=== PATIENT | male | born 1965 | race Native Hawaiian/Other Pacific Islander ===

== ENCOUNTER 2017-08-08 10:31 | Observation (INO) | payer BC ==
[~2017-08-08] VITALS: Ht 182.9 cm; Wt 153.5 kg
[~2017-08-08 10:31] MED LIST: B-125000 MC2 PO; CARV12.5 PO; FISH OIL1 C10 PO; FURO40TA93 PO; KLOR-CON M2020 MEQ PO; PROAIR HFA IN; VITAMIN D50000 UNT PO; ZINC220C4 PO
[2017-08-08 11:26] VITALS: BP 157/90; TEMP 98.5; Ht 182.9 cm; Wt 153.5 kg
[2017-08-08 12:02] VITALS: BP 157/90; TEMP 98.5
[2017-08-08 12:28] LABS: PLATELET COUNT 235 K/uL (142-355)
[2017-08-08 12:42] LABS: POTASSIUM 3.8 mmol/L (3.6-5.2)
[2017-08-08] MEDS ORDERED: GRALISE300 MG PO (15:10)
[2017-08-08] MEDS ORDERED: POTASSIUM25 MEQ PO (15:11)
[2017-08-08 16:00] VITALS: BP 132/88; TEMP 98
--- NOTE | 2017-08-08 18:30 | NUR ---
PT ASKED MULTIPLE TIMES THROUGHOUT THE DAY IF HE NEEDED ANYTHING FOR PAIN OR NAUSEA. PT DENIES ANYTHING FOR PAIN OR NAUSEA. NAD NOTED. PT WAITING TO GET CT AT THIS TIME.
[2017-08-08 20:00] VITALS: BP 150/94; TEMP 97.9
[2017-08-09] VITALS: BP 131/75; TEMP 98.3
[2017-08-09 04:00] VITALS: BP 132/80; TEMP 98.2
[2017-08-09 06:39] LABS: PLATELET COUNT 195 K/uL (142-355)
[2017-08-09 08:01] VITALS: BP 155/85; TEMP 98.4
--- NOTE | 2017-08-09 09:07 | NUR ---
899 DR MCCRARY NOTIFIED PT DEMANDING TO BE DISCHARGED HOME. AWARE. 904 CALLED TO ROOM PER PT PT HAD DC'D HIS OWN IV AND IVF'S. PT DEMANDING TO LEAVE. ATTEMPTED TO EXPLAIN TO PT WAS NOTITIFED AND WOULD BE MAKING ROUNDS SOON. PT REFUSED TO WAIT. PT REQUESTING TO SIGN AMA AT THIS TIME. PT GIVEN AND EXP[LAINED AMA FORM AND VERBALIZED UNDERSTANDING. PT LEFT AMBUALTORY
== END 2017-08-09 09:07 | disposition left against medical advice (07) ==
LOC: MED/SURG 10:31
PROVIDERS: Family Medicine; ADMIT Nurse Practitioner
DX: R10.84 Generalized abdominal pain (principal); I48.91 Unspecified atrial fibrillation
CPT/HCPCS: 80053; 82948; 85027; 93005; 96365; 96366; 96367; 96375; 99220; G0378; G0379; J0744; J2405; J3490; Q9963

== ENCOUNTER 2017-08-24 09:40 | Outpatient (CLI) | payer BC ==
[~2017-08-24 09:40] MED LIST changes: +GRALISE300 MG PO; +POTASSIUM25 MEQ PO
[2017-08-24] MEDS ORDERED: METF100038 PO (09:55)
== END 2017-08-24 09:43 | disposition short-term general hospital (02) ==
LOC: AMB 09:40
DX: R06.09 Other forms of dyspnea (principal); R53.1 Weakness; M79.605 Pain in left leg
CPT/HCPCS: A0425; A0429

== ENCOUNTER 2017-08-24 09:43 | Inpatient (IN) | payer BC ==
[~2017-08-24] VITALS: Ht 182.9 cm; Wt 146.7 kg
[2017-08-24 09:45] VITALS: BP 160/95; TEMP 98.4
[2017-08-24] MEDS ORDERED: METF100038 PO (09:55)
[2017-08-24 10:04] LABS: PLATELET COUNT 320 K/uL (142-355)
[2017-08-24 14:36] VITALS: BP 150/80; TEMP 98.1; Ht 182.9 cm; Wt 146.7 kg
[2017-08-24 16:00] VITALS: BP 150/80; TEMP 98.1
[2017-08-24 20:00] VITALS: BP 120/73; TEMP 98
[2017-08-25] VITALS: BP 119/81; TEMP 97.5
[2017-08-25 04:00] VITALS: BP 154/83; TEMP 98.1
[2017-08-25 06:12] LABS: PLATELET COUNT 259 K/uL (142-355)
[2017-08-25 08:00] VITALS: BP 154/85; TEMP 99.3
[2017-08-25 12:00] VITALS: BP 142/76; TEMP 99.8
[2017-08-25 16:00] VITALS: BP 144/90; TEMP 98.2
[2017-08-25 20:00] VITALS: BP 126/80; TEMP 98.6
[2017-08-26] VITALS: BP 126/78; TEMP 98.1
[2017-08-26 04:00] VITALS: BP 137/78; TEMP 98.6
[2017-08-26 05:18] LABS: PLATELET COUNT 235 K/uL (142-355)
[2017-08-26 05:54] LABS: POTASSIUM 3.7 mmol/L (3.6-5.2)
[2017-08-26 08:00] VITALS: BP 125/81; TEMP 98.1
[2017-08-26 12:00] VITALS: BP 119/84; TEMP 98.4
[2017-08-26 16:00] VITALS: BP 114/87; TEMP 98.4
[2017-08-26 20:00] VITALS: BP 116/66; TEMP 99
[2017-08-27] VITALS (7 sets, daily range): BP systolic 108–155; BP diastolic 64–84; TEMP 97.3–98.1
[2017-08-27 06:11] LABS: PLATELET COUNT 239 K/uL (142-355)
[2017-08-27 06:37] LABS: POTASSIUM 3.9 mmol/L (3.6-5.2)
[2017-08-28 03:30] LABS: PLATELET COUNT 236 K/uL (142-355)
[2017-08-28 03:47] VITALS: BP 126/70; TEMP 97.4
[2017-08-28 03:50] LABS: POTASSIUM 4.1 mmol/L (3.6-5.2)
[2017-08-28 07:59] VITALS: BP 130/65; TEMP 98.1
[2017-08-28 11:39] VITALS: BP 137/86; TEMP 98.1
[2017-08-28 16:00] VITALS: BP 137/75; TEMP 98
[2017-08-28 19:52] VITALS: BP 107/56; TEMP 97.7
[2017-08-29] VITALS: BP 118/71; TEMP 98.1
[2017-08-29 03:52] VITALS: BP 143/80; TEMP 97.4
[2017-08-29 05:45] LABS: PLATELET COUNT 233 K/uL (142-355)
[2017-08-29 06:07] LABS: POTASSIUM 3.1 mmol/L (3.6-5.2)
[2017-08-29 08:00] VITALS: BP 141/81; TEMP 98
[2017-08-29] MEDS ORDERED: MEDROL DOSEPAK4 MG PO (11:59)
[2017-08-29] MEDS ORDERED: KETO10TA34 PO (11:59)
[2017-08-29 12:00] VITALS: BP 133/78; TEMP 97.8
== END 2017-08-29 13:55 | disposition home or self-care (01) | DRG 565 ==
LOC: ED 09:43 → MED/SURG 12:00
PROVIDERS: ADMIT Family Medicine
DX: M25.462 Effusion, left knee (principal); E87.1 Hypo-osmolality and hyponatremia; R06.09 Other forms of dyspnea; I48.91 Unspecified atrial fibrillation; E66.01 Morbid (severe) obesity due to excess calories; E11.9 Type 2 diabetes mellitus without complications; K57.90 Diverticulosis of intestine, part unspecified, without perforation or abscess without bleeding
CPT/HCPCS: 36415; 36600; 80053; 81002; 82533; 82550; 82805; 82947; 82948; 83735; 83880; 84100; 84484; 84550; 85027; 85379; 85651; 86140; 86255; 86431; 93005; 93306; 94760; 96372; 96374; 96375; 99284; J1100; J1650; J1815; J1885; J1940; J2270; J2405; Q9963

== ENCOUNTER 2017-09-09 14:35 | Emergency (ER) | payer BC ==
[~2017-09-09] VITALS: Ht 182.9 cm; Wt 138.3 kg
[~2017-09-09 14:35] MED LIST changes: +KETO10TA34 PO; +MEDROL DOSEPAK4 MG PO; +METF100038 PO
[2017-09-09 15:27] LABS: PLATELET COUNT 223 K/uL (142-355)
[2017-09-09 15:35] LABS: POTASSIUM 4.6 mmol/L (3.6-5.2)
[2017-09-09 15:47] LABS: PARTIAL THROMBOPLASTIN TIME 24.6 SECONDS (24.5-33.6)
[2017-09-09 17:35] VITALS: BP 130/82; TEMP 97.9
== END 2017-09-09 17:35 | disposition home or self-care (01) ==
LOC: ED 14:35
DX: E11.65 Type 2 diabetes mellitus with hyperglycemia (principal)
CPT/HCPCS: 36415; 80053; 83036; 85027; 85610; 85651; 85730; 96372; 99284; J1815

== ENCOUNTER 2018-04-29 19:47 | Emergency (ER) | payer BC ==
[~2018-04-29] VITALS: Ht 182.9 cm; Wt 142.9 kg
[2018-04-29 20:26] LABS: PLATELET COUNT 226 K/uL (142-355)
[2018-04-29 20:52] LABS: POTASSIUM 3.9 mmol/L (3.6-5.2); SODIUM 140 mmol/L (136-145)
[2018-04-29 22:10] VITALS: BP 132/97; TEMP 98.4
== END 2018-04-29 22:10 | disposition home or self-care (01) ==
LOC: ED 19:47
PROVIDERS: Family Medicine
DX: R07.89 Other chest pain (principal); R06.02 Shortness of breath; I50.9 Heart failure, unspecified; R00.0 Tachycardia, unspecified; I44.4 Left anterior fascicular block
CPT/HCPCS: 36415; 80053; 82550; 82553; 83880; 84484; 85027; 93005; 99284

== ENCOUNTER 2018-11-08 23:30 | Emergency (ER) | payer BC ==
[~2018-11-08] VITALS: Ht 182.9 cm; Wt 142.9 kg
[2018-11-09 01:11] LABS: PLATELET COUNT 281 K/uL (142-355)
[2018-11-09 01:20] LABS: POTASSIUM 4.3 mmol/L (3.6-5.2)
[2018-11-09 04:35] VITALS: BP 152/82; TEMP 98.4
== END 2018-11-09 04:35 | disposition home or self-care (01) ==
LOC: ED 23:30
PROVIDERS: Emergency Medicine Emergency Medical Services
DX: R10.32 Left lower quadrant pain (principal); M54.16 Radiculopathy, lumbar region
CPT/HCPCS: 80053; 82150; 83690; 85027; 96360; 96365; 96375; 99284; J0744; J1885; J3490

== ENCOUNTER 2018-11-19 06:37 | Outpatient (CLI) | payer BC ==
[2018-11-19] MEDS ORDERED: MOBIC15 MG PO (16:51)
== END 2018-11-19 06:42 | disposition short-term general hospital (02) ==
LOC: AMB 06:37
DX: M54.5 Low back pain (principal); M25.562 Pain in left knee; M25.561 Pain in right knee
CPT/HCPCS: A0425; A0427

== ENCOUNTER 2018-11-19 06:53 | Inpatient (IN) | payer BC ==
[2018-11-19] VITALS (10 sets, daily range): BP systolic 105–157; BP diastolic 65–91; TEMP 98.1–101.2; Ht 182.9 cm; Wt 145.6 kg
[~2018-11-19] VITALS: Ht 182.9 cm; Wt 145.6 kg
[2018-11-19 08:08] LABS: PLATELET COUNT 413 K/uL (142-355)
[2018-11-19 08:09] LABS: POTASSIUM 4.3 mmol/L (3.6-5.2)
[2018-11-19] MEDS ORDERED: MOBIC15 MG PO (16:51)
[2018-11-20 04:00] VITALS: BP 141/73; TEMP 98.6
[2018-11-20 05:32] LABS: PLATELET COUNT 281 K/uL (142-355)
[2018-11-20 05:47] LABS: POTASSIUM 4.1 mmol/L (3.6-5.2)
[2018-11-20 08:00] VITALS: BP 155/86; TEMP 97.9
[2018-11-20 12:00] VITALS: BP 149/91; TEMP 98.1
[2018-11-20 20:00] VITALS: BP 130/70; BP 140/63; TEMP 98.9; TEMP 99.1
[2018-11-21] VITALS (7 sets, daily range): BP systolic 120–146; BP diastolic 63–99; TEMP 97.3–98.6
[2018-11-21 05:12] LABS: PLATELET COUNT 274 K/uL (142-355)
[2018-11-21 05:36] LABS: POTASSIUM 4.8 mmol/L (3.6-5.2)
[2018-11-22] VITALS (13 sets, daily range): BP systolic 114–137; BP diastolic 62–81; TEMP 97.5–98.6
[2018-11-22 05:48] LABS: PLATELET COUNT 318 K/uL (142-355)
[2018-11-22 06:02] LABS: POTASSIUM 4.8 mmol/L (3.6-5.2)
[2018-11-23] VITALS (9 sets, daily range): BP systolic 116–148; BP diastolic 65–87; TEMP 97.7–98.9
[2018-11-23 05:43] LABS: PLATELET COUNT 296 K/uL (142-355)
[2018-11-23 06:07] LABS: POTASSIUM 4.6 mmol/L (3.6-5.2); SODIUM 135 mmol/L (136-145)
[2018-11-24 05:42] LABS: PLATELET COUNT 329 K/uL (142-355)
[2018-11-24 06:01] LABS: POTASSIUM 4.8 mmol/L (3.6-5.2)
[2018-11-24 08:15] VITALS: BP 149/91; TEMP 97.8
== END 2018-11-24 10:45 | disposition home or self-care (01) | DRG 552 ==
LOC: ED 06:53 → PCU 12:30 → MED/SURG 12:30 → PCU 11-22 11:00 → ICU 11-22 17:50 → MED/SURG 11-23 16:05
PROVIDERS: Emergency Medicine; Family Medicine; Internal Medicine; ADMIT Hospitalist
DX: M48.061 Spinal stenosis, lumbar region without neurogenic claudication (principal); N39.0 Urinary tract infection, site not specified; I47.1 Supraventricular tachycardia; M51.36 Other intervertebral disc degeneration, lumbar region; E11.42 Type 2 diabetes mellitus with diabetic polyneuropathy; M25.462 Effusion, left knee; M25.461 Effusion, right knee; E66.01 Morbid (severe) obesity due to excess calories
CPT/HCPCS: 36415; 80048; 80053; 80202; 81000; 81374; 82550; 83605; 83880; 84443; 84484; 84550; 85027; 85379; 85651; 86038; 86140; 86200; 86431; 86618; 87040; 87590; 93005; 93306; 96361; 96365; 96366; 96375; 99284; J0153; J1170; J1650; J1940; J1956; J2060; J2270; J2405; J2920; J3370; Q9963

== ENCOUNTER 2020-06-11 08:35 | Outpatient (CLI) | payer BC ==
[~2020-06-11 08:35] MED LIST changes: +MOBIC15 MG PO
== END 2020-06-11 21:04 | disposition home or self-care (01) ==
LOC: RAD 08:35
PROVIDERS: ATTEND Nurse Practitioner Family
DX: R60.0 Localized edema (principal)

== ENCOUNTER 2020-12-24 07:10 | Emergency (ER) | payer BC ==
[~2020-12-24] VITALS: Ht 182.9 cm; Wt 145.6 kg
[2020-12-24 07:20] VITALS: BP 140/83; TEMP 97.3
== END 2020-12-24 09:55 | disposition home or self-care (01) ==
LOC: ED 07:10
DX: M25.562 Pain in left knee (principal); M25.561 Pain in right knee
CPT/HCPCS: 99281; J1885